=== PATIENT | female | born 1985 | race Caucasian/White ===

== ENCOUNTER 2022-07-26 18:27 | Emergency (ER) | payer SELFPAY ==
[2022-07-26 19:25] LABS: SARS-COV-2 RT PCR NEGATIVE (NEGATIVE)
--- NOTE | 2022-07-26 19:39 | ER ---
Nurse's Notes [facility] Name: Kush Barton Age: 37 yrs Sex: Female : 1985 Arrival Date: 07/26/2022 Time: 18:32 Bed IW2 Private MD: Diagnosis: Acute sinusitis, unspecified Presentation: 07/26 18:37 Chief complaint: Patient states: Sinus pressure, cough, congestion, headache, loss of ld1 appetite, body aches, fever X 2-3 days. Coronavirus screen: Client presents with at least one sign or symptom that may indicate coronavirus-19. Standard/surgical mask placed on the client. Ebola Screen: No symptoms or risks identified at this time. Initial Sepsis Screen: Does the patient meet any 2 criteria? No. Patient's initial sepsis screen is negative. Does the patient have a suspected source of infection? No. Patient's initial sepsis screen is negative. Risk Assessment: Do you want to hurt yourself or someone else? Patient reports no desire to harm self or others. Onset of symptoms was July 26, 2022 at 18:38. 18:37 Method Of Arrival: Ambulatory ld1 18:37 Acuity: MANDY 4 ld1 Triage Assessment: 18:38 General: Appears in no apparent distress. comfortable, Behavior is calm, cooperative, ld1 appropriate for age. Pain: Denies pain. EENT: No signs and/or symptoms were reported regarding the EENT system. Neuro: Level of Consciousness is awake, alert, obeys commands, Oriented to person, place, time, situation. Cardiovascular: Capillary refill < 3 seconds Patient's skin is warm and dry. Respiratory: Airway is patent Respiratory effort is even, unlabored. GI: Abdomen is flat, non-distended. : No signs and/or symptoms were reported regarding the genitourinary system. Derm: No signs and/or symptoms reported regarding the dermatologic system. Musculoskeletal: No signs and/or symptoms reported regarding the musculoskeletal system. Historical: - Allergies: 18:38 No Known Allergies; ld1 - PMHx: 18:38 None; ld1 - PSHx: 18:38 None; ld1 - Immunization history:: Adult Immunizations up to date, Client reports receiving the 2nd dose of the Covid vaccine. - Social history:: Smoking status: Patient denies any tobacco usage or history of. Patient/guardian denies using alcohol. Vital Signs: 18:37 BP 142 / 81; Pulse 96; Resp 18; Temp 98.6(TE); Pulse Ox 100% on R/A; Weight 99.79 kg; ld1 Height 6 ft. 1 in. (185.42 cm); Pain 0/10; 18:37 Body Mass Index 29.03 (99.79 kg, 185.42 cm) ld1 ED Course: 18:32 Patient arrived in ED. mr 18:37 [facility] Spain [facility] kb 18:37 Rodríguez Butler MD is Attending Physician. kb 18:38 Triage completed. ld1 18:38 Arm band placed on right wrist. ld1 18:41 COVID-19/FLU A+B Sent. ld1 19:07 COVID-19/FLU A+B Sent. rs5 Administered Medications: 19:45 Drug: SOLU-Medrol (methylPREDNISolone sodium succinate) 125 mg Route: IM; Site: right hb deltoid; 19:45 Follow up: Response: Medication administered at discharge. hb Outcome: 19:38 Discharge ordered by MD. kb 19:45 Discharged to home ambulatory. hb 19:45 Condition: stable 19:45 Discharge instructions given to patient, Instructed on discharge instructions, follow up and referral plans. medication usage, Demonstrated understanding of instructions, follow-up care, medications. 19:45 Patient left the ED. hb Signatures: Diandra Spain FNP-C FNP-Ckb Rivera, Mary mr Jenni Bishop RN RN Blanca Santos RN RN ld Golden Herman rs5
--- NOTE | 2022-07-26 19:39 | EDPHYS ---
Physician Documentation [facility] Name: Kush Barton Age: 37 yrs Sex: Female : 1985 Arrival Date: 07/26/2022 Time: 18:32 Bed IW2 Private MD: ED Physician Rodríguez Butler HPI: 07/26 19:50 This 37 yrs old Female presents to ER via Ambulatory with complaints of Flu Symptoms. kb 19:50 The patient or guardian reports cough, that is intermittent, described as mild, flu kb symptoms, low-grade fever, myalgias. Onset: The symptoms/episode began/occurred 2 day(s) ago. Severity of symptoms: At their worst the symptoms were moderate, in the emergency department the symptoms are unchanged. Modifying factors: The symptoms are alleviated by nothing, the symptoms are aggravated by nothing. Associated signs and symptoms: Pertinent positives: fever, rhinorrhea, Pertinent negatives: chest pain, diarrhea, ear ache, nausea, sore throat, vomiting. The patient has not experienced similar symptoms in the past. The patient has not recently seen a physician. Pt reports cough, congestion, sinus pressure, bodyaches, decreased appetite and fever for 2 days. . Historical: - Allergies: 18:38 No Known Allergies; ld1 - PMHx: 18:38 None; ld1 - PSHx: 18:38 None; ld1 - Immunization history:: Adult Immunizations up to date, Client reports receiving the 2nd dose of the Covid vaccine. - Social history:: Smoking status: Patient denies any tobacco usage or history of. Patient/guardian denies using alcohol. ROS: 19:50 Cardiovascular: Negative for chest pain, palpitations, and edema. kb 19:50 Constitutional: Positive for body aches, chills, fatigue, fever, malaise. 19:50 ENT: Positive for rhinorrhea, sinus congestion. 19:50 Respiratory: Positive for cough. 19:50 All other systems are negative. Exam: 19:49 Constitutional: This is a well developed, well nourished patient who is awake, alert, kb and in no acute distress. Head/Face: Normocephalic, atraumatic. ENT: Moist Mucous membranes Cardiovascular: Regular rate and rhythm with a normal S1 and S2. No gallops, murmurs, or rubs. No pulse deficits. Respiratory: Respirations even and unlabored. No increased work of breathing. Talking in full sentences Abdomen/GI: Soft, non-tender. No distention Skin: Warm, dry with normal turgor. Normal color. MS/ Extremity: Pulses equal, no cyanosis. Neurovascular intact. Full, normal range of motion. Neuro: Awake and alert, GCS 15, oriented to person, place, time, and situation. Moves all extremities. Normal gait. Psych: Awake, alert, with orientation to person, place and time. Behavior, mood, and affect are within normal limits. Vital Signs: 18:37 BP 142 / 81; Pulse 96; Resp 18; Temp 98.6(TE); Pulse Ox 100% on R/A; Weight 99.79 kg; ld1 Height 6 ft. 1 in. (185.42 cm); Pain 0/10; 18:37 Body Mass Index 29.03 (99.79 kg, 185.42 cm) ld1 MDM: 18:37 Patient medically screened. kb 19:49 Data reviewed: vital signs, nurses notes. Data interpreted: Pulse oximetry: on room air kb is 100 %. Interpretation: normal. Counseling: I had a detailed discussion with the patient and/or guardian regarding: the historical points, exam findings, and any diagnostic results supporting the discharge/admit diagnosis, lab results, the need for outpatient follow up, a family practitioner, to return to the emergency department if symptoms worsen or persist or if there are any questions or concerns that arise at home. 07/26 18:37 Order name: COVID-19/FLU A+B; Complete Time: 19:28 ld1 Administered Medications: 19:45 Drug: SOLU-Medrol (methylPREDNISolone sodium succinate) 125 mg Route: IM; Site: right hb deltoid; 19:45 Follow up: Response: Medication administered at discharge. Disposition Summary: 07/26/22 19:38 Discharge Ordered Location: Home Condition: Stable kb Diagnosis - Acute sinusitis, unspecified kb Followup: kb - With: Emergency Department - When: As needed - Reason: Worsening of condition Followup: kb - With: Private Physician - When: 2 - 3 days - Reason: Recheck today's complaints, Continuance of care, Re-evaluation by your physician Discharge Instructions: - Discharge Summary Sheet kb - Sinusitis, Adult, [id number] kb Forms: - Medication Reconciliation Form kb - Thank You Letter kb - Antibiotic Education kb - Prescription Opioid Use kb Signatures: Dispatcher [employer] Diandra Kay, LETHAC DESTINY-Jenni Pavon, RN RN Blanca Santos RN RN ld1
[2022-07-26] MEDS ORDERED: METHYLPREDNISOLONE 125 MG INJ ONE (19:40)
[2022-07-26 20:00] VITALS: BP 142/81; TEMP 98.6; O2SAT 100
== END 2022-07-26 19:45 | disposition home or self-care (01) ==
LOC: ER 18:27
DX: J01.90 Acute sinusitis, unspecified (principal)
CPT/HCPCS: 0240U; 96372; 99283; J2930